=== PATIENT | male | born 2000 | race Caucasian/White ===

== ENCOUNTER 2021-03-15 19:49 | Inpatient (IN) ==
[2021-03-15] MEDS ORDERED: METOCLOPRAMIDE HCL INJ 5 MG/ML 2 ML VIAL IV PRN (19:57)
[2021-03-15] MEDS ORDERED: ONDANSETRON INJ 2 MG/ML 2 ML VIAL IV PRN ×4 (19:57→23:52)
[2021-03-15] MEDS ORDERED: diphenhydrAMINE 50 MG/ML VIAL IV PRN ×2 (19:57→23:52)
[2021-03-15] MEDS ORDERED: SODIUM CHLORIDE 0.9% 1000ML 1,000 ML IV SCH (20:00)
[2021-03-15] MEDS ORDERED: PROPOFOL IV EMULSION 10 MG/ML 20 ML VIAL IV ONE (20:01)
[2021-03-15] MEDS ORDERED: fentaNYL citrate 100 MCG/2 ML VIAL ONE ×3 (20:01→22:29)
[2021-03-15] MEDS ORDERED: MIDAZOLAM HCL 1 MG/ML 2ML VIAL ONE (20:01)
[2021-03-15] MEDS ORDERED: SUCCINYLCHOLINE 100MG/5ML SYR IV ONE (20:01)
--- NOTE | 2021-03-15 20:15 | History & Physical Report ---
Date of Service March 15, 2021 Assessment & Plan (1) Septic hip: Seen in clinic today. Evaluated and had US guided hip aspiration. Labs show infectious process. Plan on wash out with Dr. Zofia fregoso. Dr. Armijo will obtain informed consent with patient. MRI pending. Gram stain pending. Admission and Anticipated Discharge Date Admission Date: March 15, 2021 History of Present Illness Chief Complaint: Right Hip Pain Primary Care Provider: NO PCP This 20 yo M has hist of right thigh and hip pain since of last week. Monday he woke up and had difficulty bearing weight and gait disturbance that caused him to miss work. Over the weekend symptoms worsened and patient was unable to ambulate. He has tried Aleve, Ice, exercised, rest and elevation at the recommendation of his mother who is a nurse without any relief. He denies CP, SOB, nausea, vomiting, diarrhea, fever, chills, sweats or lethargy but has significant weakness in his Right LE. Allergies Allergy/AdvReac Type Severity Reaction Status Date / Time No Known Allergies Allergy Unverified 03/15/21 20:07 Review of Systems All systems reviewed & are unremarkable except as noted in Subjective Physical Exam Physical Exam: Right LE: TTP in groin. Unable to perform SLRT. No dermatomal deficit. + Log Roll. Referred groin pain with passive flexion to 90 degrees, external rotation to 50 degrees and internal rotation to 5 degrees. Groin pain with passive abduction and adduction of hip. No edema, erythema, ecchymosis, warmth, open skin areas or draingae. NV intact. Able to actively dorsi/plantar flex foot w/o pain. ASA Classification ASA ASA1 Code Status & VTE Plan VTE Prophylaxis Plan VTE Prophylaxis will be ordered: Yes
--- NOTE | 2021-03-15 20:17 | Anesthesiology Consultation ---
Date of Service March 15, 2021 Assessment & Plan ASA ASA2E Proposed Anesthesia Anesthesia Type: General Risk / Benefits Reviewed With: PT / POA / Parent / Guardian, Accepts Plan and Informed Consent Obtained History Surgery Operation Date: 03/15/21 20:00 Proposed Procedures p Arthroscopy Hip(Right) - Yosi Armijo MD Allergies Allergy/AdvReac Type Severity Reaction Status Date / Time No Known Allergies Allergy Unverified 03/15/21 20:07 Exercise / Class Metabolic Activity II 4-5 Yardwork/Stairs/Walk up hill Past Anesthesia History No Hx of Anesthesia Complications and No Family Hx of Anesthesia Complications History of PONV No Hx of PONV and No Hx of Motion Sickness Review of Systems denies fever/cough/ colds/ chest pain/ SOB/ ANNA denies ANNA Physical Exam ENMT Mouth: no TMJ abnormality and no dentition abnormality Thyromental Distance: > or= 3.5 Finger Breadths Mallampati Class: I Mouth / Teeth: 2 1. broken Neck neck extension not limited Respiratory normal respiratory effort; no respiratory distress Auscultation: lungs clear to auscultation bilaterally Cardiovascular Rate/Rhythm: regular rate and regular rhythm Neurologic moves all extremities Psychiatric Orientation: alert and oriented x 3
[2021-03-15] MEDS ORDERED: HYDROmorphone INJ 2 MG/ML SYR/VIAL IV PRN ×2 (20:18→23:06)
[2021-03-15] MEDS ORDERED: ATROPINE SULFATE 0.1 MG/ML 10ML SYR IV PRN ×2 (20:18→23:06)
[2021-03-15] MEDS ORDERED: fentaNYL citrate 100 MCG/2 ML VIAL IV PRN ×2 (20:18→23:06)
[2021-03-15] MEDS ORDERED: ePHEDrine sulfate 50 MG/ML AMP IV PRN ×2 (20:18→23:06)
[2021-03-15] MEDS ORDERED: ceFAZolin 2,000 MG/15 ML IV PUSH IV ONE (20:33)
[2021-03-15] MEDS ORDERED: ceFAZolin 2000MG 2,000 MG/15 ML SYR IV SCH (20:45)
[2021-03-15] MEDS ORDERED: BUPIVACAINE 0.5 % 5 MG/1 ML MPF 30ML VIAL ONE (21:01)
[2021-03-15] MEDS ORDERED: DEXAMETHASONE SOD INJ 4 MG/ML VIAL ONE (21:01)
[2021-03-15] MEDS: VANCOMYCIN HCL 1 GM/270 ML BAG ONE ×2 (21:33→21:59)
[2021-03-15] MEDS ORDERED: ONDANSETRON INJ 2 MG/ML 2 ML VIAL ONE (21:38)
[2021-03-15] MEDS ORDERED: LIDOCAINE HCL 2% 2 ML VIAL/AMP(20MG/ML) INFIL ONE ×2 (21:38)
[2021-03-15] MEDS ORDERED: diphenhydrAMINE 50 MG/ML VIAL ONE (21:41)
--- NOTE | 2021-03-15 23:11 | Communication Note ---
Date of Service: March 15, 2021 antibiotics were held until cultures taken. Ancef and vancomycin were started at the same time. Ancef was completed after five mins. Pt started to experi ence audible wheezing and his face/arms/upper chest werebright red. Pt had b/l Wheezing. Pt given benadryl and epi with resolving of symptoms within three minutes. Vanco was stopped at the time with ~ 20 mL of 250mL given. This was most likely an allerigc reaction to one of the antibiotics, but a redmans syndrome cannot be r/o. Pt responded well to rescue meds and no hives were seen.
--- NOTE | 2021-03-15 23:34 | Anesthesiology Progress Note ---
Date of Service March 15, 2021 Anesthesia Post Procedure Vital Signs Vital Signs: Temp Pulse Resp BP Pulse Ox 03/15/21 23:25 74 16 142/94 H 98 03/15/21 22:50 37.0 C 18 144/96 H 98 Transfer of Care Handoff Completed per policy Notes Mental Status: alert / awake / arousable and participated in evaluation Patient Amnestic to Procedure: Yes Nausea / Vomiting: adequately controlled Pain: adequately controlled Airway Patency, RR, SpO2: stable & adequate BP & HR: stable & adequate Hydration State: stable & adequate Anesthetic Complications: no major complications apparent and Pt Satisfied with anesthetic care
[2021-03-15] MEDS ORDERED: HYDROmorphone INJ 0.5 MG/0.5 ML SYR IV PRN (23:52)
[2021-03-16] MEDS: CLINDAMYCIN 900 MG in DEXTROSE 5% 50 ML IV SCH ×3 (00:14→16:07)
[2021-03-16] MEDS: KETOROLAC 30 MG/ML VIAL IV PRN ×2 (00:14→21:58)
[2021-03-16] MEDS: SODIUM CHLORIDE 0.9% 1000ML 1,000 ML IV SCH ×3 (00:14→19:47)
[2021-03-16] MEDS ORDERED: PATIENT'S HEIGHT AND/OR WEIGHT NEEDED SCH (00:15)
--- NOTE | 2021-03-16 06:16 | Operative Report (OR) ---
DATE OF OPERATION: 03/15/2021 PREOPERATIVE DIAGNOSES: 1. Right [place] septic hip joint. 2. Right hip intra-articular mass. POSTOPERATIVE DIAGNOSES: 1. Right [place] septic hip joint. 2. Right hip intra-articular mass. OPERATIONS PERFORMED: 1. Open irrigation and debridement, right hip joint. 2. Right hip mass excisional biopsy. INDICATIONS: Mr. Otero is a 20-year-old male with no significant past medical history who presented to our clinic this afternoon with inability to bear weight on his right lower extremity due to pain in his right hip. He states the pain started insidiously on approximately 4 days prior to presentation. It worsened on Monday and on Monday and Monday, he was unable to bear weight. Upon presentation to our clinic, he had an irritable hip joint with range of motion limited to 90 degrees of flexion, 5 degrees of internal rotation, and 40 degrees of external rotation with pain at all end ranges of motion. X-rays were obtained which were negative. An ultrasound was obtained showing fluid in the joint. We aspirated the joint which showed cloudy fluid. We sent the joint fluid for cell count, crystals, and stat Gram stain. His cell count came back at 30,000 white cells with 93% polymorphonucleocytes. His crystal analysis was negative. His Gram stain actually came back with many white blood cells, but no organisms. His ESR and CRP were elevated. I ordered a stat MRI, which showed fluid in the hip joint as well as an intra-articular mass with benign characteristics. I had a long discussion with the patient about the presumed infected hip joint. I recommended irrigation and debridement of his hip joint to prevent bacterial damage to the articular cartilage. I also recommended that at the time of the surgery we excised the mass within his hip joint and sent it to pathology. After reviewing all the risks and benefits of surgery, alternatives to surgery, and expected outcomes, he elected to proceed. All questions were answered. Informed consent was signed. OPERATIVE FINDINGS: The hip joint was entered through a Leary-Mistry anterior approach. We aspirated about 20 mL of purulent-appearing fluid from the hip joint prior to entering the capsule and sent this for Gram stain and culture. We then entered the hip with a T-shaped capsulotomy and were able to excise the mass en bloc. Tissue cultures were sent as well and synovectomy was performed. The hip was irrigated out with 9 liters of normal saline and a drain was placed. DESCRIPTION OF THE OPERATION: The patient was identified in the preoperative holding area where surgical site was marked. He was brought back to main operating room where he was placed on the Steris hip table and general anesthesia was performed. All bony prominences were padded. Antibiotics were held until after cultures were obtained. He was prepped and draped in the normal sterile fashion. Prior to incision, a multidisciplinary timeout was called. All in the room were in agreement. An 8 cm long incision was made starting just lateral to the anterior superior iliac spine and extending distally towards the lateral border of the patella. I dissected down through subcutaneous tissues to the level of the fascia. Full thickness flaps were raised above the fascia. I then incised the fascia in line with the incision over the tensor fascia vern. We then identified the lateral femoral cutaneous nerve, which was dissected out and protected throughout the case. We then developed the interval between the rectus femoris and the gluteus medius. The ascending branch of the lateral femoral circumflex artery was identified and cauterized. We dissected the rectus femoris off the capsule and placed a sharp Hohmann along the medial femoral neck. A wide Hohmann was placed over the lateral femoral neck to expose the anterior aspect of the hip capsule. At this point, an 18-gauge spinal needle attached to a 30 mL syringe was placed into the hip joint and approximately 20-25 mL of purulent-appearing fluid were aspirated out of the hip joint. This fluid as stated above was sent for Gram stain and culture. Next, a T-shaped capsulotomy was made. This immediately revealed purulent-appearing fluid within the hip joint. There was some abnormal synovial debris that was infectious appearing which was removed with a rongeur and sent for tissue cultures. Next we identified the mass in the inferior limb of our T-shaped capsulotomy. We extended the portion of the T down along the medial femoral neck to expose the most inferior aspect of the mass. It did have a synovial attachment, which we removed off the capsule, so the mass could be removed en bloc. This was then sent for permanent section. The mass measured approximately 3.5 x 1.5 x 1 cm, with 2 lobules, one larger than the other, was soft and shiny, and was dark brown in coloration with tinges of yellow. 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 At this point, the wound was irrigated out with 9 liters of sterile normal saline. Once this was complete, we soaked the wound with dilute Betadine solution. We then irrigated and suctioned this out. The inferior limbs of the capsulotomy were sutured to one another converting the I-shaped capsulotomy to an interportal type of capsulotomy. This other portion was left open and the drain was placed into the hip joint through this capsulotomy. This was a 10-[place] Hemovac drain. We then closed the fascia using 2-0 PDS in running fashion. The deep dermal layer was closed with 2-0 PDS. We then closed the skin with byron. Sterile dressings were applied. The patient was awoken from anesthesia and transferred to the recovery room in stable condition. POSTOPERATIVE COURSE: The patient will be admitted to the floor for postoperative pain control and for IV antibiotics. Of note, he did have an apparent reaction to either the vancomycin and cefazolin, which were administered at the same time after we obtained our cultures. Therefore, we will treat him with IV clindamycin and await his final culture results. The patient will be nonweightbearing on the right lower extremity. We will monitor his drain output overnight. He will be on lovenox for DVT prophylaxis. I attest to the content of the Intraoperative Record and any orders documented therein. Any exceptions are noted below. ASTRID
[2021-03-16 08:05] LABS: Prothrombin Time 10.6 Seconds (9.0-12.0)
[2021-03-16 08:22] LABS: Est GFR (African American) > 150.0; Est GFR (Non-African American) 144.7
[2021-03-16] MEDS: DOCUSATE SODIUM 100 MG CAP PO SCH ×2 (08:30→21:57)
--- NOTE | 2021-03-16 11:24 | Orthopedic Progress Note ---
Date of Service March 16, 2021 Assessment & Plan (1) Status post incision and drainage: PT/OT Weightbearing as tolerated with walker assistance Keep drain in place Keep dressing in place Pain control with p.o. medication Ice with EZ WRAP DVT prophylaxis with Lovenox and RILEY stockings Case management evaluation Continue IV antibiotics We will continue to follow while in house Admission and Anticipated Discharge Date Admission Date: March 15, 2021 Subjective This 20-year-old male seen this morning. He is day 1 status post Incision and drainage right hip, excisional right hip mass biopsy. Patient states he is doing very well. He states he still has some pain in the groin and has difficulty raising his right lower extremity. He states that he was advised by medicine service that he will most likely be admitted for about 3 days for IV antibiotics, and they plan on sending him home on oral medication. Currently he denies chest pain, shortness of breath, fever, chills, sweats, lethargy or numbness or tingling in his right lower extremity. Review of Systems Review of Systems: All systems reviewed & are unremarkable except as noted in Subjective Physical Exam Physical Exam: Right LE: TTP in groin. Able to perform SLRT. No dermatomal deficit. Logroll test negative. Knee range of motion from 0 to 90 degrees. Patient is able to actively dorsi and plantarflex his foot has no pain with applied resistance. Patient has no pain with hip flexion to 70 degrees . There is no pain With light passive external hip rotation but. She does experience some referred pain to the groin with light internal rotation. Drain is in place with only a scant amount of fluid in the bag. Mild edema. No erythema, ecchymosis, warmth, open skin areas. NV intact. Peripheral pulses 2+. Results & Data ([facility]) Vital Signs (Past 12 Hours) Vital Signs Temp Pulse Pulse Resp BP Pulse Ox 03/16/21 07:43 36.6 C 56 L 14 119/70 98 03/16/21 02:58 36.5 C 52 L 14 108/64 98 03/16/21 01:17 36.6 C 64 14 116/70 100 03/16/21 00:53 36.6 C 71 18 122/74 97 03/16/21 00:23 37.3 C 73 16 138/77 95 03/15/21 23:50 37 C 76 16 142/88 H 100 03/15/21 23:35 36.8 C 72 16 140/87 98 03/15/21 23:25 74 16 142/94 H 98 Laboratory Results 03/16/21 03/16/21 Range/Units 07:34 07:34 PT 10.6 (9.0-12.0) Seconds INR 1.0 (0.9-1.1) Creatinine 0.60 (0.6-1.4) mg/dl Est Cr Clr Drug Dosing 190.0 ml/min Est GFR ( Amer) > 150.0 Est GFR (Non-Af Amer) 144.7
[2021-03-16] MEDS: oxyCODONE/ACETAMINOPHEN 5mg/325mg TAB PO PRN ×2 (12:31→19:45)
--- NOTE | 2021-03-16 13:57 | Operative Report ---
Post Operative Report Pre & Post Diagnosis Operation Date: 03/15/21 20:00 <No data on this case meets the specified criteria> Operation Date: 03/15/21 20:30 Pre-Op Diagnosis: Septic hip. Post-Op Diagnosis: Septic hip. I identified the patient and participated in the time-out.: Yes Procedure Operation Date: 03/15/21 20:00 <No data on this case meets the specified criteria> Operation Date: 03/15/21 20:30 Actual Procedures p Incision and drainage right hip, excisional right hip mass biopsy.(Right) - Yosi Armijo MD Surgeon Yosi Armijo MD Engravings Polisher Faraz Sahu Estimated Blood Loss 50 Findings Consistent with Post-Op Diagnosis Specimens soft tissue mass, fluids Drains hemovac Anesthesia Type General Complications none Disposition Accompanied Patient To Recovery: Yes Disposition: Recovery Room Description of Procedure As per 's note, I assisted in prepping and draping, instruments handling, certain parts of the procedure and wound closure. I attest to the content of the Intraoperative Record and any orders documented therein. Any exceptions are noted below.
[2021-03-16] MEDS ORDERED: ENOXAPARIN INJ 40 MG/0.4 ML SYR SQ SCH (21:30)
[2021-03-17] MEDS: oxyCODONE/ACETAMINOPHEN 5mg/325mg TAB PO PRN (00:43)
[2021-03-17] MEDS: CLINDAMYCIN 900 MG in DEXTROSE 5% 50 ML IV SCH ×4 (00:44→23:27)
[2021-03-17] MEDS: SODIUM CHLORIDE 0.9% 1000ML 1,000 ML IV SCH ×2 (06:13→16:11)
[2021-03-17] MEDS: DOCUSATE SODIUM 100 MG CAP PO SCH ×2 (07:47→20:29)
[2021-03-17] MEDS: ACETAMINOPHEN 325 MG TAB PO PRN ×2 (07:48→16:12)
--- NOTE | 2021-03-17 08:17 | Orthopedic Progress Note ---
Date of Service March 17, 2021 Assessment & Plan (1) Status post incision and drainage: ESR/CRP to be drawn this morning Continue to follow cultures Continue empiric antibiotic treatment with clindamycin PT/OT Weightbearing as tolerated with walker assistance Drain pulled this morning and new dressing placed. Keep dressing in place until his 2 week follow-up OK to shower Pain control with p.o. medication Ice with EZ WRAP Switch DVT prophylaxis to aspirin and RILEY stockings Case management evaluation Infectious diseases has been consulted - will look to them for assistance in antibiotic selection, dosing, lab monitoring, and follow-up Admission and Anticipated Discharge Date Admission Date: March 15, 2021 Subjective Patient had some lightheadedness after receiving 2 percocet yesterday, but did better when he got only 1 percocet. No fevers/chills. Blood cultures were drawn yesterday and are pending. Joint fluid cultures had not grown anything yesterday. Drain output decreasing, with total drain output 70 cc. Physical Exam Physical Exam: Comfortable in bed R hip: drain pulled, incision c/d/i. New dressing placed. Tolerates passive ROM of the hip with minimal discomfort - much improved compared to before surgery. Distally NVI. Results & Data ([facility]) Vital Signs (Past 12 Hours) Vital Signs Temp Pulse Resp BP Pulse Ox 03/17/21 07:30 36.6 C 68 18 107/65 99 03/16/21 22:04 36.8 C 77 18 121/57 L 99
[2021-03-17] MEDS: ASPIRIN 81 MG ECTAB PO SCH (12:39)
[2021-03-17 15:44] LABS: Lyme Ab IgG w/WB Rflx Negative (Negative); Lyme Ab IgM w/WB Rflx Negative (Negative)
[2021-03-17] MEDS: KETOROLAC 30 MG/ML VIAL IV PRN (21:32)
[2021-03-18] MEDS: SODIUM CHLORIDE 0.9% 1000ML 1,000 ML IV SCH ×2 (02:25→11:58)
[2021-03-18] MEDS: CLINDAMYCIN 900 MG in DEXTROSE 5% 50 ML IV SCH ×2 (07:54→15:47)
[2021-03-18] MEDS: ASPIRIN 81 MG ECTAB PO SCH (07:54)
[2021-03-18] MEDS: DOCUSATE SODIUM 100 MG CAP PO SCH (07:55)
--- NOTE | 2021-03-18 15:10 | Orthopedic Progress Note ---
Date of Service March 18, 2021 Assessment & Plan (1) Status post incision and drainage: Spoke with the pathologist regarding the specimen we sent. 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 No bacteria are seen. No additional testing recommended. Patient is anxious to discharge home, understandably. I told him that that his cultures have all been negative so far, so I think it would be safe to discharge him on oral Keflex, and we can continue to follow his cultures while he is at home. I am going to try to reach Dr. Vega with infectious diseases for any additional recommendations they might have. Follow-up with me in clinic Monday next week. ESR/CRP to be drawn prior to the visit. Weightbearing as tolerated with walker Keep dressing in place until his 2 week follow-up OK to shower Pain control with p.o. medication Ice with EZ WRAP DVT prophylaxis with aspirin and RILEY stockings Admission and Anticipated Discharge Date Admission Date: March 15, 2021 Subjective Patient feeling much better today. Able to walk better. No fevers/chills. ESR/CRP done yesterday were decreased from before surgery. Joint and blood cultures are all negative at 48 hours. Lyme serology yesterday was negative. Synovial fluid analysis for Lyme's was sent yesterday, however, laboratory states the result may not be back until next week. Physical Exam Physical Exam: L hip: dressing c/d/i. Tolerates passive ROM with minimal discomfort. NVI. Results & Data ([facility]) Vital Signs (Past 12 Hours) Vital Signs Temp Pulse Resp BP Pulse Ox 03/18/21 14:48 37.2 C 61 19 143/72 H 98 03/18/21 07:29 36.8 C 76 19 122/73 100
--- NOTE | 2021-03-18 16:30 | Discharge Summary ---
Date of Service March 18, 2021 Admission HPI Per Admitting Provider This 20 yo M has hist of right thigh and hip pain since of last week. Monday he woke up and had difficulty bearing weight and gait disturbance that caused him to miss work. Over the weekend symptoms worsened and patient was unable to ambulate. He has tried Aleve, Ice, exercised, rest and elevation at the recommendation of his mother who is a nurse without any relief. He denies CP, SOB, nausea, vomiting, diarrhea, fever, chills, sweats or lethargy but has significant weakness in his Right LE. Admission Exam Per Admitting Provider Right LE: TTP in groin. Unable to perform SLRT. No dermatomal deficit. + Log Roll. Referred groin pain with passive flexion to 90 degrees, external rotation to 50 degrees and internal rotation to 5 degrees. Groin pain with passive abduction and adduction of hip. No edema, erythema, ecchymosis, warmth, open skin areas or draingae. NV intact. Able to actively dorsi/plantar flex foot w/o pain. Principal Diagnosis Right hip infection/mass Discharge Exam L hip: dressing c/d/i. Tolerates passive ROM with minimal discomfort. NVI. Discharge Data Allergies Allergy/AdvReac Type Severity Reaction Status Date / Time No Known Allergies Allergy Unverified 03/15/21 20:07 Consultations 03/15/21 23:52 Consult Infectious Diseases Routine Procedures Performed Operation Date: 03/15/21 20:00 <No data on this case meets the specified criteria> Operation Date: 03/15/21 20:30 Actual Procedures p Incision and drainage right hip, excisional right hip mass biopsy.(Right) - Yosi Armijo MD Hospital Course (1) Status post incision and drainage: Spoke with the pathologist regarding the specimen we sent. 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 No bacteria are seen. No additional testing recommended. Patient is anxious to discharge home, understandably. I told him that that his cultures have all been negative so far, so I think it would be safe to discharge him on oral Keflex, and we can continue to follow his cultures while he is at home. I am going to try to reach Dr. Vega with infectious diseases for any selena tional recommendations they might have. Follow-up with me in clinic Monday next week. ESR/CRP to be drawn prior to the visit. Weightbearing as tolerated with walker Keep dressing in place until his 2 week follow-up OK to shower Pain control with p.o. medication Ice with EZ WRAP DVT prophylaxis with aspirin and RILEY stockings Total Time Total Time Spent Total Time Spent (In Minutes): 90 mins Total Time Includes: Examination of the Patient, Discharge Planning, Medication Reconciliation and Communication With Other Providers Discharge Plan Discharge Items Patient Disposition: Home - Self-Care Reason For Visit: possible septic hip Discharge Diagnosis: s/p I&D of Right hip with mass biopsy Activity: As commented below Lifting: None Bathing: Keep incision dry Bathing Comment: may shower Sexual Activity: Wait until after follow-up appointment Exercise/Sports: Wait until after follow-up appointment Driving/Machine Use: No driving until cleared by promotion specialist Weightbearing: Right weightbearing Weightbearing Comment: as tolerated with crutch assistance Non-emergency contact: Surgeon Call non-emergency contact if: you have any medication questions, your pain is not controlled, your temperature is above 101.5, your wound has increased drainage and your wound pain has increased Follow-up/Referrals: PCP,NO [Primary Care Provider] - Diet: Regular Addtl Attending Provider Instructions: Post-operative Instructions Dear Patient and Family/Friends, Before you are discharged from the hospital, it is important to know what to expect when you get home after surgery. To that end, we have created this sheet of discharge instructions which covers many commonly asked questions. Make sure you go through this sheet in its entirety with your nurse before you are discharged. Please note that we will go over the specifics of your surgery and recovery when you return for your first post-operative visit. Sincerely, Dr. Armijo Medications 1. Keflex 500 mg: take 1 tab 3 times daily for the next 7 days. A prescription was sent to your pharmacy. 2. Diclofenac Sodium 75 mg: take 1 tab twice daily for relief of pain and inflammation. A prescription for this medication was sent to your pharmacy with 1 refill. 3. Extra Strength Tylenol 500 mg: take 2 tabs as needed for supplemental pain control. Please purchase. 4. Aspirin 81 mg: take 1 tab daily for 30 days post operatively for blood clot prevention. Please purchase Pain Expect to be in a fair amount of pain after surgery. Remember, our goal is not to eliminate your pain, but to make it tolerable. It is a good idea to stay ahead of your pain by taking the medications you were prescribed once you get home. Typically, the pain starts improving 3-7 days after surgery. You should start weaning off the narcotic pain medication (oxycodone, hydrocodone, hydromorphone, morphine) as soon as your pain improves. Please call our office if your pain is not adequately controlled. Ice Ice your operative site at least 5 times a day for 15-30 minutes at a time. Make sure you have a thin cloth between the ice or cooling unit and your skin to prevent patel bite. This is especially important if you received a nerve block. Continue icing your operative site for the first 5-7 days after surgery, then as needed. Diet/Nausea/Vomiting Start by drinking clear liquids and eating crackers. If you can tolerate this, then you may resume your normal diet. If you feel nauseated or vomit, take Zofran/ondansetron (if prescribed). Please call our office if you have intractable nausea or vomiting, or, if after hours, you may go to the Emergency Room for help. Constipation Constipation is a common side effect of narcotic pain medication. If you have not had a bowel movement within 2 days after surgery, we recommend purchasing an over the counter laxative such as Milk of Magnesia, Dulcolax, or Miralax from a local pharmacy, and taking it as instructed. Call our clinic if any questions. Nerve block The anesthesia team sometimes places a nerve block to help with post-operative pain control. This results in significant numbness and inability to move the extremity. The nerve block usually wears off in 8-12 hours, but sometimes can last up to 24 hours. Please call our office if you are still unable to move your extremity after 24 hours, unless you received a pain pump to take home. Nerve blocks typically wear off quickly, so start taking pain medication as soon as you start feeling soreness near your surgical site. Weight bearing and Range of Motion. Do not bear any weight through your operative extremity immediately after surgery. If you had upper extremity surgery, do not lift anything with that arm. If you are in a knee brace, keep it locked in place until your follow-up. We will discuss your weight bearing, range of motion, and lifting restrictions in detail at your first post-operative appointment. Continuous Passive Motion (CPM) Machine If you were prescribed a CPM machine, it will start after your first post- operative appointment, at which time we will give you instructions on the range of motion settings and duration of treatment Physical therapy You will be given a prescription for physical therapy or occupational therapy at your first post-operative appointment. Typically, patients start therapy within 1 week of surgery Wound care and showering We will inspect your wound at your first post-operative visit, and may do a dressing change at that time. Most patients will be in a water-proof dressing that is removed 14 days after surgery. It is normal to see some dried blood on the dressing. Do not remove your dressing, paper strips or sutures yourself unless you are given permission. Showering is allowed the day after surgery. Do not scrub or remove any dressings. The wound should not be submerged underwater (i.e. in a bathtub or pool) until 4 weeks after surgery RILEY stockings If you were given white stockings, these are to be worn at all times except to shower (on both legs) for the first 2 weeks after surgery. Driving You may not drive while taking narcotic pain medication or while in a cast, splint, sling or brace. You, the patient, need to make the final determination about when you are safe to drive, however, the earliest you may consider driving after surgery is below: Hand/Wrist/Elbow Surgery: 3 days Shoulder Surgery: 2 weeks Hip,/Knee/Ankle Surgery: 4 weeks Fracture repair: 6 weeks Return to Work Your return to work depends on what surgery was done and what type of work you do. Please bring any paperwork your employer needs completed to your first post-operative visit. Also, bring a description of your job duties, as this helps us to understand what risks you may face at work. Travel Avoid long distance travel (greater than 1 hour) in airplanes and cars for the f irst 6 weeks after surgery. If you must travel, you need to have a Doppler ultrasound done before you travel to rule out a blood clot in your legs. Follow-up You should have a follow-up appointment already scheduled 1-2 days after surgery. If not, please contact our office to make this appointment before you leave the hospital. When to call the office It is normal to have swelling and bruising in the limb that was operated on. This will improve with time. It is also normal to have fevers for the first 2 days after surgery. Reasons you should call your doctor include: Uncontrolled pain; Nausea, vomiting, or constipation that does not improve with medication; Fevers over 101.5, chills, sweats; Drainage or bleeding from the wound; Foul odor; Spreading areas of redness; Any other concerns Pending Studies at Discharge: Yes Studies:: Cultures Stand-Alone Forms: My [facility] [place], Smoking Cessation Medications and DC Order Prescriptions: New cephalexin 500 mg tablet 500 mg PO TID 7 Days Qty: 21 RF: 0 diclofenac sodium 75 mg tablet,delayed release (DR/EC) 75 mg PO BID 30 Days Qty: 60 RF: 1 Discharge Orders: Discharge Order (Routine); Ordered 03/18/21 Ordered By: Quinn Stiles/Other Patient Handouts: How Your Hip Works Admission Data Admit Date/Time: 03/15/21 23:52 Attending Provider: Yosi Armijo Admit Provider: Yosi Armijo Primary Care Provider: PCP,NO Other Providers: Leodan Soto ; Alysha Vega ; Harshal Mays I. ; Gabino Henderson II ; Amelia Guerra ; Guilherme Rivera
[2021-03-20 10:21] LABS: Lyme DNA PCR CSF or Synovial Not detected (Not Detected); Lyme DNA Source Synovial Fluid
== END 2021-03-18 17:03 | disposition home or self-care (01) | DRG 482 ==
LOC: 3N 19:49
PROC: M.IDHIP (2021-03-15 20:30)